=== PATIENT | female | born 1995 | race Caucasian/White ===

== ENCOUNTER 2019-08-23 10:42 | Emergency (ER) | payer BC ==
[2019-08-23 11:13] VITALS: BP 140/86
--- NOTE | 2019-08-23 11:25 | UC ---
Ear Complaint HPI - HPI Summary HPI Summary: 23-year-old female who started experiencing a right earache Sunday and Sunday of this week and runny nose and scratchy throat the past 2 days. She denies any fever or chills. No History of ear infections. - History of Current Complaint Chief Complaint: UCEar Stated Complaint: SINUSES/BILAT EAR PAIN Time Seen by Provider: 08/23/19 11:16 Hx Obtained From: Patient Hx Last Menstrual Period: current ?: No Onset/Duration: Gradual Onset Severity Initially: Mild Severity Currently: Mild Pain Intensity: 4 Aggravating Factors: Nothing Alleviating Factors: Nothing Associated Signs/Symptoms: Positive: URI Symptoms - Allergies/Home Medications Allergies/Adverse Reactions: Allergies Allergy/AdvReac Type Severity Reaction Status Date / Time No Known Allergies Allergy Verified 09/30/14 08:59 Home Medications: Home Medications Naproxen Sodium [Aleve] 440 mg PO ONCE PRN 09/30/14 [History Confirmed 08/23/19] Amoxicillin PO (*) [Amoxicillin 875 MG (*)] 875 mg PO BID 10 Days #20 tab [Rx] D-Methorphan/PE/Acetaminophen [Cold Relief/Non-Drowsy/Da 10-5-325 mg] 1 tab PO ONCE 08/23/19 [History Confirmed 08/23/19] PMH/Surg Hx/FS Hx/Imm Hx Previously Healthy: Yes - Surgical History Surgical History: Yes Surgery Procedure, Year, and Place: T&A. mole removed on top of head. appy - Family History Known Family History: Positive: None - Social History Alcohol Use: None Substance Use Type: None Smoking Status (MU): Never Smoked Tobacco - Immunization History Most Recent Influenza Vaccination: not this season Vaccination Up to Date: Yes Review of Systems All Other Systems Reviewed And Are Negative: Yes ENT: Positive: Ear Ache, Nasal Discharge Is Patient Immunocompromised?: No Physical Exam Triage Information Reviewed: Yes Appearance: Well-Appearing, No Pain Distress, Well-Nourished Vital Signs: Initial Vital Signs Temp 97.8 F 08/23/19 11:08 Pulse 74 08/23/19 11:08 Resp 18 08/23/19 11:08 BP 140/86 08/23/19 11:08 Pulse Ox 100 08/23/19 11:08 Vital Signs Reviewed: Yes Eyes: Positive: Conjunctiva Clear ENT: Positive: Pharynx normal, Nasal drainage - Clear nasal coryza, TM red - Left tympanic membrane is pearly-ibrahim with good land bautista and light reflex, right tympanic membrane is erythematous and mildly bulging with moderate landmarks., Uvula midline. Negative: Trismus, Muffled voice, Hoarse voice Neck: Positive: Supple, Nontender, No Lymphadenopathy Respiratory: Positive: Lungs clear, Normal breath sounds, No respiratory distress, No accessory muscle use Cardiovascular: Positive: RRR, No Murmur, Pulses Normal, Brisk Capillary Refill Musculoskeletal Exam: Normal Neurological Exam: Normal Psychological Exam: Normal Skin Exam: Normal Ear Complaint Course/Dx - Course Course Of Treatment: Patient is comfortable here and in no distress. - Differential Dx/Diagnosis Provider Diagnosis: Right otitis media Discharge ED - Sign-Out/Discharge Documenting (check all that apply): Patient Departure All imaging exams completed and their final reports reviewed: No Studies - Discharge Plan Condition: Good Disposition: HOME Prescriptions: Amoxicillin PO (*) [Amoxicillin 875 MG (*)] 875 mg PO BID 10 Days #20 tab Patient Education Materials: Ear Infection (ED) Referrals: [facility] [Outside] No Primary Care Phys,NOPCP [Primary Care Provider] - Additional Instructions: Increase fluids, [id number] cold medicine as directed. Definite follow up at [facility] or your primary care provider in 3 or 4 days if no improvement. - Billing Disposition and Condition Condition: GOOD Disposition: Home
== END 2019-08-23 11:32 | disposition home or self-care (01) ==
LOC: UCCORT 10:42
DX: H66.91 Otitis media, unspecified, right ear (principal)
CPT/HCPCS: 99202; G0463